=== PATIENT | male | born 1965 | race Caucasian/White ===

== ENCOUNTER 2017-11-28 10:01 | Emergency (ER) | payer SELFPAY ==
[2017-11-28] MEDS ORDERED: cefTRIAXone(*) 1 GM in NS 0.9% 50 ML* 50 ML IVPB ONE (10:31)
[2017-11-28] MEDS ORDERED: NS 0.9% 1000 ML* 2,000 ML IV ONE (10:31)
[2017-11-28] MEDS ORDERED: Ketorolac INJ* 30 MG/ML 1 ML VIAL IV PUSH ONE (10:32)
[2017-11-28 10:51] LABS: ABS Basophils 0.1 10^3/ul (0-0.2); ABS Eosinophils 0.4 10^3/ul (0-0.6); ABS Lymphocytes 1.5 10^3/ul (1.0-4.8); ABS Monocytes 1.3 10^3/ul (0-0.8); ABS Neutrophils 6.5 10^3/ul (1.5-7.7); ABS Nucleated RBC 0 10^3/ul; Hematocrit 39 % (42-52); Hemoglobin 13.6 g/dl (14.0-18.0); Lymphocyte % 15.6 % (25-47); Mean Corpuscular HGB Conc 35 g/dl (31-36); Mean Corpuscular Hemoglobin 31 pg (27-31); Mean Corpuscular Volume 90 fL (80-94); Mean Platelet Volume 8.7 um3 (7.4-10.4); Nucleated Red Blood Cells % 0.1; Platelet Count 187 10^3/ul (150-450); Red Blood Count 4.36 10^6/ul (4.00-5.40); Red Cell Distribution Width 14 % (10.5-15); White Blood Count 9.7 10^3/ul (3.5-10.8)
--- NOTE | 2017-11-28 10:55 | RAD ---
INDICATION: Renal colic] gram left. Hematuria. COMPARISON: None TECHNIQUE: Noncontrast axial source images were acquired from the level hemidiaphragms to the symphysis pubis as part of CT imaging for renal stone. Lung bases: The lung bases are clear. Liver: The liver is normal in size. Noncontrast imaging shows no evidence of a hepatic mass or ductal dilatation. Gallbladder: There are no calcified gallstones. There is no evidence of wall thickening or pericholecystic fluid.. Spleen: The spleen is normal in size. The noncontrast CT appearance is normal. Pancreas: Noncontrast imaging shows no pancreatic mass or ductal dilitation. Adrenal glands: No masses are identified. Kidneys/Bladder: There are calcifications in the minor pelvis in the right one measuring 4 mm and the other 2 mm which may be ureteral. It is difficult to trace the ureter. The obstructive findings support the presence of ureteral calculi. There are no additional calcifications. The noncontrast CT appearance of the urinary tract is otherwise unremarkable Adenopathy: There is no evidence of intraperitoneal or retroperitoneal adenopathy. Evaluation is limited without oral contrast. Fluid collections: There are no free or localized fluid collections. Vessels: The aorta and iliac vessels are normal in caliber. There are no significant atherosclerotic changes. The IVC appears normal Pelvic organs: The prostate and seminal vesicles appear normal GI tract: Evaluation of the bowel is limited without oral contrast. The stomach, small bowel, and lower GI tract appear grossly normal. There are no obstructive findings. The appendix is visualized and appears normal. Soft tissues: No soft tissue abnormalities of the extraperitoneal abdomen or pelvis are identified. Osseous structures: There are no acute osseous findings. IMPRESSION: MILD RIGHT-SIDED HYDRONEPHROSIS AND HYDROURETER LIKELY PRODUCED BY MID RIGHT URETERAL CALCULI.
[2017-11-28 11:07] LABS: EGFR Non-African American 55.9 (>60)
--- NOTE | 2017-11-28 12:54 | ED ---
Phani Landeros Elizabeth, scribed for Mellisa Robb MD on 11/28/17 at 1040 . GI/ HPI - HPI Summary HPI Summary: This patient is a 52 year old M presenting to [facility] upon referral from [facility] with a chief complaint of right flank pain since 4 days ago. The patient notes that at [facility] they did a UA and found blood in his urine. The patient rates the pain 8/10 in severity. Symptoms aggravated by nothing. Symptoms alleviated by nothing. Patient reports intermittent chills. Patient denies fever. Patient has hx of kidney stones but notes that when he last time he was able to pass the stone naturally in a shorter period of time. - History of Current Complaint Chief Complaint: EDFlankPain Stated Complaint: GEN ILLNESS Hx Obtained From: Patient Onset/Duration: Started Days Ago - 4 days, Atraumatic, Still Present Timing: Constant Severity: Moderate Current Severity: Moderate Pain Intensity: 8 Location of Pain: Flank - right flank Associated Signs and Symptoms: Positive: Chills. Negative: Fever Aggravating Factor(s): Nothing Alleviating Factor(s): Nothing - Allergy/Home Medications Allergies/Adverse Reactions: Allergies Allergy/AdvReac Type Severity Reaction Status Date / Time No Known Allergies Allergy Verified 11/28/17 10:12 Home Medications: Home Medications Albuterol Sulfate [Proventil Hfa] 2 inh PO Q8HR PRN 11/28/17 [History Confirmed 11/28/17] Loratadine 10 mg PO DAILY 11/28/17 [History Confirmed 11/28/17] PMH/Surg Hx/FS Hx/Imm Hx Endocrine/Hematology History: Denies: Hx Diabetes Opthamlomology History: Denies: Hx Legally Blind EENT History: Denies: Hx Deafness Infectious Disease History: No Infectious Disease History: Reports: Traveled Outside the [place] in Last 30 Days - [facility] - Family History Known Family History: Positive: None - patient denies relevant FHx - Social History Alcohol Use: Weekly Substance Use Type: Reports: None Smoking Status (MU): Never Smoked Tobacco Review of Systems Positive: Chills. Negative: Fever Negative: Epistaxis Negative: Vomiting Positive: flank pain - right flank pain, hematuria All Other Systems Reviewed And Are Negative: Yes Physical Exam - Summary Physical Exam Summary: Appearance: Well-appearing, Well-nourished Skin: Warm Eyes: Normal ENT: Normal Neck: Supple, nontender Respiratory: Clear to auscultation Cardiovascular: Regular rate, regular rhythm. Normal S1, S2. Abdomen: Soft, right flank tenderness, no CVA tenderness Musculoskeletal: Normal, Strength/ROM Intact Neurological: Normal, A&Ox3 Psychiatric: Normal General: No acute distress Triage Information Reviewed: Yes Vital Signs On Initial Exam: Initial Vitals Temp Pulse Resp BP Pulse Ox 98.9 F 74 16 128/90 100 11/28/17 10:10 11/28/17 10:10 11/28/17 10:10 11/28/17 10:10 11/28/17 10:10 Vital Signs Reviewed: Yes Diagnostics - Vital Signs Vital Signs Temp Pulse Resp BP Pulse Ox 11/28/17 10:10 98.9 F 74 16 128/90 100 - Laboratory Lab Results: Lab Results 11/28/17 11/28/17 Range/Units 10:43 10:43 WBC 9.7 (3.5-10.8) 10^3/ul RBC 4.36 (4.00-5.40) 10^6/ul Hgb 13.6 L (14.0-18.0) g/dl Hct 39 L (42-52) % MCV 90 (80-94) fL MCH 31 (27-31) pg MCHC 35 (31-36) g/dl RDW 14 (10.5-15) % Plt Count 187 (150-450) 10^3/ul MPV 8.7 (7.4-10.4) um3 Neut % (Auto) 66.6 (38-83) % Lymph % (Auto) 15.6 L (25-47) % [place] % (Auto) 13.2 H (0-7) % Eos % (Auto) 4.0 (0-6) % Baso % (Auto) 0.6 (0-2) % Absolute Neuts (auto) 6.5 (1.5-7.7) 10^3/ul Absolute Lymphs (auto) 1.5 (1.0-4.8) 10^3/ul Absolute Monos (auto) 1.3 H (0-0.8) 10^3/ul Absolute Eos (auto) 0.4 (0-0.6) 10^3/ul Absolute Basos (auto) 0.1 (0-0.2) 10^3/ul Absolute Nucleated RBC 0 10^3/ul Nucleated RBC % 0.1 Sodium 135 (135-145) mmol/L Potassium 4.5 (3.5-5.0) mmol/L Chloride 101 (101-111) mmol/L Carbon Dioxide 27 (22-32) mmol/L Anion Gap 7 (2-11) mmol/L BUN 12 (6-24) mg/dL Creatinine 1.35 H (0.67-1.17) mg/dL Est GFR ( Amer) 67.7 (>60) Est GFR (Non-Af Amer) 55.9 (>60) BUN/Creatinine Ratio 8.9 (8-20) Glucose 100 (70-100) mg/dL Calcium 9.3 (8.6-10.3) mg/dL Total Bilirubin 0.60 (0.2-1.0) mg/dL AST 18 (13-39) U/L ALT 16 (7-52) U/L Alkaline Phosphatase 36 (34-104) U/L Total Protein 7.2 (6.4-8.9) g/dL Albumin 3.9 (3.2-5.2) g/dL Globulin 3.3 (2-4) g/dL Albumin/Globulin Ratio 1.2 (1-3) Result Diagrams: 11/28/17 10:43 11/28/17 10:43 Lab Statement: Any lab studies that have been ordered have been reviewed, and results considered in the medical decision making process. - CT CT Abd/Pelvis CT Interpretation: Positive (See Comments) - IMPRESSION: MILD RIGHT-SIDED HYDRONEPHROSIS AND HYDROURETER LIKELY PRODUCED BY MID RIGHT URETERAL CALCULI. Dr. Robb has reviewed this report. CT Interpretation Completed By: Radiologist Re-Evaluation - Re-Evaluation 1st re-eval Re-Evaluation Time: 12:31 Change: Improved Comment: Discussed imaging results with patient. GIGU Course/Dx - Course Course Of Treatment: CT Abd- mild right hydronephrosis secondary to 4mm and 2mm ureteral calculi. Naproxen and COPIUS hydration advised but pt to follow up of pain persists or back to ED if f/c/worsening pain. Empiric abx aslo prescribed - Diagnoses Provider Diagnoses: Renal calculus, right, Renal colic on right side Discharge - Sign-Out/Discharge Documenting (check all that apply): Discharge/Admit/Transfer - Discharge Plan Condition: Stable Disposition: HOME Discharge Disposition Comment: discharge home Prescriptions: Ciprofloxacin TAB* [Cipro 500 MG TAB*] 500 mg PO BID 10 Days #20 tab Naproxen [Naproxen 500 mg tab] 500 mg PO BID 15 Days #30 tablet. Patient Education Materials: Kidney Stones (ED), Renal Colic (ED) Referrals: [facility] [Outside] Benedict Vasquez MD [Medical Doctor] - 2 Days Additional Instructions: Follow up with Dr. Vasquez, urologist, in 2-3 days. Return to the emergency department with any new or worsening symptoms. - Billing Disposition and Condition Condition: STABLE Disposition: Home The documentation as recorded by the Phani golden Elizabeth accurately reflects the service I personally performed and the decisions made by , Mellisa Robb MD.
[2017-11-28 12:59] VITALS: BP 134/83
== END 2017-11-28 12:58 | disposition home or self-care (01) ==
LOC: ED 10:01
DX: N13.2 Hydronephrosis with renal and ureteral calculous obstruction (principal); Z87.442 Personal history of urinary calculi
CPT/HCPCS: 36415; 74176; 80053; 85025; 96361; 96365; 96375; 99282; J0696; J1885